=== PATIENT | female | born 2005 | race Caucasian/White ===

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

== ENCOUNTER 2025-04-13 14:48 | Emergency (ER) | payer OTHER, SELFPAY ==
--- NOTE | 2025-04-13 14:49 | ED.FEMALEGU ---
HPI - Female Genitourinary General Chief complaint: Urogenital-Female Stated complaint: Urinary Problem Time Seen by Provider: 04/13/25 14:48 Source: patient Mode of arrival: ambulatory Limitations: no limitations History of Present Illness HPI Narrative: Alfredito is a 19 year old female patient presenting to the clinic today with c/o possible UTI. She reports developed burning with urination, frequency, and urgency this morning. Has not taken any medications for her symptoms. Denies any fevers, chills, body aches, back pain, abdominal pain, nausea, or vomiting. Related Data Allergies Allergy/AdvReac Type Severity Reaction Status Date / Time No Known Allergies Allergy Verified 04/13/25 15:05 Review of Systems Review of Systems: Pertinent positives per HPI. Patient denies any fever, chills, rash, headache, visual changes, dizziness, cough, runny nose, sore throat, shortness of breath, chest pain, palpitations, nausea, vomiting, diarrhea, constipation, abdominal pain. PMFSH Past Medical History Medical History Pneumonia Otitis media Social History Social History Alcohol intake: never Substance use type: does not use Living arrangements: with family Gender identity (if verbalized by the patient): Female Comments At the time of my signature, I reviewed and agree with the nursing past medical, surgical, social, and family history. There is no relevant family history pertinent to the patient complaint. Exam Narrative: General: Well-developed, well nourished, in no apparent distress. Head: Normocephalic, atraumatic. Cardio: Regular rate and rhythm, s1 and s2 normal, no murmur appreciated. Resp: Clear to auscultation bilaterally, no rhonchi, rales, wheezing or rubs. Abdomen: Soft, pliable, bowel sounds present in all quadrants, non-tender to palpation, no organomegly, no CVAT tenderness. Course Course Emergency Course: Portions of this record may have been created with voice recognition software. Level of Care: Express Care Visit Vital Signs Vital signs: Vital Signs Temperature 36.8 C 04/13/25 14:55 Pulse Rate 97 04/13/25 14:55 Respiratory Rate 16 04/13/25 14:55 Blood Pressure 129/65 04/13/25 14:55 Pulse Oximetry 99 04/13/25 14:55 Oxygen Delivery Room Air 04/13/25 14:55 Temperature 36.8 C 04/13/25 14:55 Pulse Rate 97 04/13/25 14:55 Respiratory Rate 16 04/13/25 14:55 Blood Pressure 129/65 04/13/25 14:55 Pulse Oximetry 99 04/13/25 14:55 Oxygen Delivery Room Air 04/13/25 14:55 Vital signs reviewed MDM - Female Genitourinary MDM Narrative Medical decision making narrative: At the time of visit patient is resting comfortably on the exam table. Patient appears to be nontoxic. C/o possible UTI. She reports developed burning with urination, frequency, and urgency this morning. Has not taken any medications for her symptoms. Denies any fevers, chills, body aches, back pain, abdominal pain, nausea, or vomiting. On exam patient has soft, pliable, nondistended, nontender abdomen, no CVAT tenderness. Labs:Urine dip positive for leukocytes, blood, and protein. We will send urine for culture. Plan: I suspect patient has urinary tract infection. Prescription for Bactrim DS and Pyridium was sent to the pharmacy. Note was given for patient to be allowed her medications on a plane. Patient is going to [place] tomorrow for the [employer]. Supportive measures were discussed with the patient and they voiced understanding discharge instructions and agrees to treatment plan. Return precautions reviewed Differential Diagnosis Differential diagnosis: Likely urinary tract infection and cystitis Lab Data Labs: Lab Results 04/13/25 Range/Units 15:06 POC Urine Color [place] POC Urine Clarity Clear POC Urine pH 6.5 POC Ur Specif [place] 1.015 POC Urine Protein Trace (Negative) POC Ur Glucose (UA) Negative (Negative) POC Urine Ketones Negative (Negative) POC Urine Blood 3+ (Negative) POC Urine Nitrite Negative (Negative) POC Urine Bilirubin Negative (Negative) POC Urine Urobilinogen 0.2 POC U Leukocyte Esteras 2+ (Negative) Discharge Plan Discharge Clinical Impression: Urinary tract infection Qualifiers: Urinary tract infection type: acute cystitis Hematuria presence: with hematuria Qualified Code(s): N30.01 - Acute cystitis with hematuria Patient Disposition: Home Condition: Stable Instructions: Antibiotic Form, Urinary Tract Infection in Women (ED) Additional Instructions: Take Bactrim DS as prescribed May take Pyridium as prescribed Increase fluids and stay well hydrated Wipe front to back. May use wet wipes. Avoid tub baths If sexually active- pee before and after intercourse. Wear cotton panties Avoid tight clothing up against the genitals Follow up with your PCP in 1 week if symptoms persist. Patient Language: Swedish Prescriptions: New sulfamethoxazole-trimethoprim [Bactrim DS] 800-160 mg tablet 1 tablet PO Q12H 5 Days Qty: 10 0RF phenazopyridine [Pyridium] 200 mg tablet 200 mg PO TID PRN (Reason: pain) Qty: 6 0RF Follow-up/Referrals: UNKNOWN,DOCTOR [Non-Staff] Stand Alone Forms: Work/School Release IP Time of Disposition: 15:12 Quality NIHSS Nursing Documentation ED NIHSS nursing documentation: reviewed/agree
--- OUTSIDE RECORDS SUMMARY | 2025-04-13 14:49 | XMS_ITS | Clinical Summary ---
Author Organization [facility] Address [address] [place] [address] Care Team Providers Care [employer] Setter Name Role Phone No, Physician Primary Care Provider [phone] Allergies No known active allergies Medications No known medications Active Problems Problem Noted Date Diagnosed Date Chronic migraine without aur a without status migrainosus, not intractable 05/30/2024 Medical History Medical History Date Comments Heart murmur as Social History Tobacco Use Types Packs/Day Years Used Date Smoking Tobacco: Never Smokeless Tobacco: Never Tobacco Cessation:Counseling Given: Not Answered Personal Safety Answer Date Recorded Have you ever been in or are you currently in a harmful physical or emotional relationship or is someone making you feel afraid or unsafe? Denies 01/13/2024 Comments No Sex and Gender Information Value Date Recorded Sex Assigned at Not on file Legal Sex Female 5:45 PM FURNITURE [employer]ANDER Gender Identity Not on file Sexual Orientation Not on file Growth Chart Information Age Height Weight Unbuta-[id number]-[id number] th Percentile BMI Percentile Head Circum Head Circum Percentile Date 19 years 172.7 cm (5' 8) 78.8 kg (173 lb 12.8 oz) 86.21%* 2024 18 years 172.7 cm (5' 8) 83 kg (183 lb) 90.42%* 2023 18 years 172.7 cm (5' 8) 72.6 kg (160 lb) 77.34%* 2023 14 years 80 kg (176 lb 5.9 oz) 2019 * [facility] (Girls, 2-20 Years) Last Filed Vital Signs Vital Sign Reading Time Taken Comments Blood Pressure 124/78 08/07/2024 8:13 AM FURNITURE SANDER Pulse 112 08/07/2024 8:13 AM FURNITURE SANDER Temperature 37.1 C (98.7 F) 01/13/2024 4:27 PM CDT Respiratory Rate 16 01/13/2024 4:27 PM CDT Oxygen Saturation 98% 08/07/2024 8:13 AM FURNITURE SANDER Inhaled Oxygen Concentration - - Weight 78.8 kg (173 lb 12.8 oz) 08/07/2024 8:13 AM FURNITURE SANDER Height 172.7 cm (5' 8) 08/07/2024 8:13 AM FURNITURE SANDER Body Mass Index 26.43 08/07/2024 8:13 AM FURNITURE SANDER Plan of Treatment Health Maintenance Due Date Last Done Comments Depression Screening 2005 Hepatitis C Screening 2005 Meningococcal B Vaccine (1 o f 2 - Standard) 2021 Regular Well Visit/Exam 18-64 2023 Influenza Vaccine (#1) 2025 DTaP/Tdap/Td Vaccine (7 - Td or Tdap) 01/12/2027 01/12/2017, 01/14/2011, 07/26/2008, Additional history exists Pneumococcal vaccine <65 Completed 10/20/2007, 09/04 Hepatitis B Screening Completed 12/21/2007 , 10/20/2007, 2005, Additional history exists Varicella Vaccines Completed 01/14/2011, 11/20/2007 HPV Vaccines Completed 07/15/2017, 01/12/2017 Meningococcal Vaccine Completed 03/06/2023, 017 Insurance [facility] Care Teams [employer] Setter Relationship Specialty Start Date End Date No, Physician PCP - General 01/17/20
[2025-04-13 14:55] VITALS: BP 129/65; PULSE 97; RESP 16; TEMP 36.8; O2SAT 99
[2025-04-13 15:10] LABS: EDUAAPPEAR Clear; EDUABILI Negative (Negative); EDUABLOOD 3+ (Negative); EDUACOLOR1 Pink; EDUAGLUCOSE Negative (Negative); EDUAKETONE Negative (Negative); EDUALEUKO 2+ (Negative); EDUANITRATE Negative (Negative); EDUAPH 6.5; EDUAPROTEIN Trace (Negative); EDUASPGRAVITY 1.015; EDUAUROBILI 0.2
== END 2025-04-13 15:20 | disposition home or self-care (01) ==
PROVIDERS: Emergency Provider Nurse Practitioner Family
DX: N30.01 Acute cystitis with hematuria (principal)
CPT/HCPCS: 81003; 87086; 99213; G0463